=== PATIENT | female | born 1960 | race Caucasian/White ===

== ENCOUNTER 2021-07-11 23:25 | Emergency (ER) | payer OTHER ==
[2021-07-11 23:43] VITALS: TEMP 98.8; BMI 29.8
[2021-07-12 00:55] LABS: BASO % 0.4 % (0-2.0); EOS % 5.5 % (0-4.5); HEMATOCRIT 25.5 % (32.4-45.2); HEMOGLOBIN 8.7 GM/dL (10.7-15.3); LYMPH % 23.8 % (8-40); MCH 31.9 pg (25.7-33.7); MCHC 34.1 g/dl (32.0-36.0); MEAN CELL VOLUME 93.5 fl (80-96); MONO % 12.2 % (3.8-10.2); NEUT % 58.1 % (42.8-82.8); PLATELET COUNT 166 10^3/uL (134-434); RBC 2.73 M/mm3 (3.60-5.2); RDW 14.4 % (11.6-15.6); WHITE BLOOD COUNT 11.6 K/mm3 (4.0-10.0)
[2021-07-12 01:15] LABS: ALBUMIN 3.5 g/dl (3.4-5.0); BLOOD UREA NITROGEN 52.5 mg/dL (7-18); CALCIUM 9.2 mg/dL (8.5-10.1)
[2021-07-12 01:18] LABS: CREATININE 3.8 mg/dL (0.55-1.3)
[2021-07-12 01:20] LABS: BILIRUBIN,TOTAL 0.8 mg/dL (0.2-1); TOT PROT 6.5 g/dl (6.4-8.2)
[2021-07-12 01:36] LABS: PROTHROMBIN TIME (PATIENT) 59.7 SEC (9.7-13.0)
[2021-07-12 01:39] LABS: ACTIVATED PTT 55.5 SECONDS (25.2-36.5)
[2021-07-12 01:45] LABS: INR 5.11 (0.83-1.09)
[2021-07-12 02:07] VITALS: BP 110/86; PULSE 86
== END 2021-07-12 02:00 | disposition short-term general hospital (02) ==
LOC: JER 23:25
DX: R04.0 Epistaxis (principal); R79.1 Abnormal coagulation profile
CPT/HCPCS: 36415; 80053; 85025; 85610; 85730; 86850; 86900; 86901; 93005; 93010; 99284-25